=== PATIENT | female | born 1955 | race Caucasian/White ===

== ENCOUNTER 2020-10-31 21:30 | Inpatient (IN) | payer BC, MEDICARE ==
[~2020-10-31] VITALS: Ht 175.3 cm; Wt 105.0 kg
[2020-10-31] MEDS ORDERED: HM I1TAB PO (21:41)
[2020-11-01] VITALS (9 sets, daily range): BP systolic 101–139; BP diastolic 47–86
[2020-11-01 00:50] LABS: BASO % 0.1 % (0.0-1.0); EOS % 0.1 % (0.0-3.0); HEMATOCRIT 46.9 % (36.0-47.0); LYMPH # 1.1 10^3/uL (1.5-5.0); LYMPH % 10.5 % (24.0-44.0); MEAN CORPUSCULAR HEMOGLOBIN 29.9 pg (27.0-33.0); MEAN CORPUSCULAR VOLUME 93.4 fl (80.0-96.0); MONO # 0.5 10^3/uL (0.0-0.8); MONO % 4.9 % (2.0-8.0); NEUTROPHILS # 8.4 10^3/uL (1.5-8.5); PLATELET COUNT, AUTOMATED 333 10^3/uL (150-450); RED BLOOD COUNT 5.02 10^6/uL (4.00-5.40)
[2020-11-01 01:21] LABS: ALBUMIN 3.4 GM/DL (3.2-5.2); ALT/SGPT 60 U/L (12-78); BILIRUBIN,DIRECT 0.3 MG/DL (0.0-0.2); BILIRUBIN,TOTAL 0.8 MG/DL (0.2-1.0); CK-MB VALUE MASS 1.3 NG/ML (<3.6); CPK CREATINE PHOSPHOKINASE 139 U/L (26-192); LIPASE 143 U/L (73-393); MB/CK RELATIVE INDEX 0.94 (< OR =4); TOTAL PROTEIN 7.4 GM/DL (6.4-8.2); TROPONIN I < 0.02 NG/ML (< 0.10)
[2020-11-01] MEDS ORDERED: ONDANSETRON 4MG/2ML VIAL IV ONE (01:50)
[2020-11-01] MEDS ORDERED: ISOVUE-370 76% 100ML VIAL As Ordered ONE (01:53)
[2020-11-01] MEDS: MORPHINE 4 MG/ML 1ML VIAL/SYRINGE (J2270) IV PRN ×2 (02:13→02:46)
[2020-11-01] MEDS ORDERED: HYDROMORPHONE HCL 0.5 MG/ 0.5 ML SYRINGE (J1170 PER 1) IV PRN (03:25)
--- NOTE | 2020-11-01 03:47 | REPVR ---
PROCEDURE INFORMATION: Exam: CT Abdomen And Pelvis With Contrast Exam date and time: 11/01/2020 1:49 AM Age: 65 years old Clinical indication: Abdominal pain; Localized; Right; Additional info: Right upper and lower quadrant abd pain TECHNIQUE: Imaging protocol: Computed tomography of the abdomen and pelvis with contrast. Radiation optimization: All CT scans at this facility use at least one of these dose optimization techniques: automated exposure control; mA and/or kV adjustment per patient size (includes targeted exams where dose is matched to clinical indication); or iterative reconstruction. Contrast material: ISO; Contrast volume: 100 ml; Contrast route: INTRAVENOUS (IV); COMPARISON: No relevant prior studies available. FINDINGS: Mediastinal space: Moderate hiatal hernia. Liver: Normal. No mass. Gallbladder and bile ducts: Cholecystectomy clips in the right upper quadrant. Pancreas: Normal. No ductal dilation. Spleen: Normal. No splenomegaly. Adrenal glands: Normal. No mass. Kidneys and ureters: Normal. No hydronephrosis. Stomach and bowel: Moderate diverticulosis coli. Appendix: Irregular appendix with appendicular lith measures 1.8 cm. Adjacent stranding. Tiny punctate gas focus adjacent. Evidence for acute appendicitis with suspected micro perforation. Intraperitoneal space: Unremarkable. No free air. No significant fluid collection. Vasculature: Mild to moderate aortic and iliac artery atherosclerotic calcification. Lymph nodes: Unremarkable. No enlarged lymph nodes. Urinary bladder: Unremarkable as visualized. Reproductive: Unremarkable as visualized. Bones/joints: Moderate lumbar spondylosis. Soft tissues: Unremarkable. IMPRESSION: 1. Irregular appendix with appendicular lith measures 1.8 cm. Adjacent stranding. Tiny punctate gas focus adjacent. Evidence for acute appendicitis with suspected micro perforation. 2. Moderate diverticulosis coli. 3. Moderate hiatal hernia. Electronically signed by: Rigo Duvall On 11/01/2020 03:46:39 AM
[2020-11-01] MEDS ORDERED: PIPERACILLIN/TAZOBACTAM SOD 3.375 GM in D5W MINI-BAG PLUS 50 ML IV ONE (04:35)
[2020-11-01] MEDS ORDERED: OMEG1CAP85 PO (05:05)
[2020-11-01] MEDS ORDERED: OMEP-218 PO (05:05)
[2020-11-01] MEDS ORDERED: HOME MED LIST COMPLETE! XX SCH (05:05)
[2020-11-01] MEDS ORDERED: AMOX875T PO (05:05)
[2020-11-01] MEDS ORDERED: IBUP-1764 PO (05:05)
[2020-11-01] MEDS ORDERED: EZET10TA21 PO (05:05)
[2020-11-01] MEDS ORDERED: ASPI-161 PO (05:05)
[2020-11-01] MEDS ORDERED: VITMTA PO (05:05)
[2020-11-01] MEDS ORDERED: LISI20TA35 PO (05:05)
[2020-11-01 05:13] LABS: RSV AMPLIFICATION NEGATIVE (NEGATIVE)
[2020-11-01] MEDS ORDERED: ONDANSETRON 4MG/2ML VIAL IV PRN ×2 (05:30→10:05)
[2020-11-01] MEDS ORDERED: ACETAMINOPHEN TAB 650MG DOSE (2X325MG) PO PRN (05:30)
[2020-11-01] MEDS ORDERED: LR 1,000 ML IV SCH ×2 (05:30→10:05)
[2020-11-01] MEDS ORDERED: LR 1,000 ML IV ONE (06:35)
[2020-11-01] MEDS ORDERED: LIDOCAINE 1% SDV 30ML VIAL As Ordered ONE (07:11)
[2020-11-01] MEDS ORDERED: BUPIVACAINE HCL 0.25% 30ML VIAL As Ordered ONE (07:11)
--- NOTE | 2020-11-01 07:31 | HPEPDOC ---
General Surgery H&P Date of Admission Nov 01, 2020 Attending Physician: SHERIF PATE MD History and Physical CHIEF COMPLAINT: Abdominal pain HISTORY OF PRESENT ILLNESS: Patient is a 65-year-old female who presented himself to the emergency room with a 4-day history of ongoing right-sided abdominal discomfort. Initially intermittent, later yesterday becoming more constant associated with nausea, one episode of vomiting. She denies any associated fevers or chills. She is from [place] and travels here for vacation. Denies any sick contacts. In the emergency room she was evaluated was found to have evidence for appendicitis. ALLERGIES: Please see below. HOME MEDICATIONS: Please see below. PAST MEDICAL HISTORY: 1. Hypertension. 2. Hyperlipidemia 3. PAST SURGICAL HISTORY: 1. Tonsillectomy. 2. section 3. Hysterectomy 4. Cholecystectomy via right subcostal incision 5. Right knee surgery 6. Right carpal tunnel surgery PERSONAL/SOCIAL HISTORY: Patient is a previous smoker, but 1 pack a day quit 1- 1/2 years ago, denies alcohol or recreational drug use. REVIEW OF SYSTEMS: GENERAL: Symptoms are of acute nature, denies any chronic pains, denies fevers or chills, denies unexplained weight loss. HEENT: Wears glasses, denies hearing problems. NECK: [Denies any neck pain]. CARDIOVASCULAR: [Denies chest pain and palpitations]. SKIN: [Denies rash]. NEUROLOGIC: [Denies headache, stroke and transient ischemic attack]. PSYCHIATRIC: [Denies anxiety and depression]. ENDOCRINE: Denies diabetes or thyroid problems. HEMATOLOGY/ONCOLOGY: [Denies any bleeding or clotting disorder]. PULMONARY: [Denies chronic cough, dyspnea and wheezing]. GASTROINTESTINAL: See HPI. GENITOURINARY: [Denies dysuria, frequency, hematuria and nocturia]. ENDOCRINE: [Denies polydipsia, polyphagia, polyuria, heat or cold intolerance]. INFECTIOUS: Patient was taking Augmentin. NUTRITION: reports fair appetite. PHYSICAL EXAMINATION: VITAL SIGNS: Please see below. GENERAL APPEARANCE: Patient seen laying on the stretcher, visibly uncomfortable. HEENT: [Normocephalic, atraumatic. [place] palpebral conjunctivae. Anicteric sclerae. Lips dry]. CHEST: [No chest wall abnormalities. Normal respiratory motion/effort]. NECK: [Supple. No thyromegaly. No lymphadenopathies]. LUNGS: [Lung sounds are clear to auscultation bilaterally. No wheezing appreciated]. HEART: [No chest wall abnormalities. Heart rate and rhythm are regular with no murmurs]. ABDOMEN: Obese abdomen, minimally distended. She has a right subcostal incision from her cholecystectomy, Pfannenstiel incision from her gynecologic surgery. No noticeable incisional hernias. She is tender over the right lower quadrant area with moderate guarding. SKIN: Warm dry. EXTREMITIES: No significant extremity edema. NEUROLOGICAL: [Awake, alert, oriented]. ANCILLARIES:. LABORATORY DATA: Please see below. WBCs 10 MICROBIOLOGY: Please see below. IMAGING: CT scan of the abdomen and pelvis Appendix: Irregular appendix with appendicular lith measures 1.8 cm. Adjacent stranding. Tiny punctate gas focus adjacent. Evidence for acute appendicitis with suspected micro perforation IMPRESSION AND PLAN: Acute appendicitis with possible early perforation with no associated abscess, localized peritonitis Patient has a 4-day history of initially relapsing abdominal pain around becoming constant with no severe signs of systemic inflammatory response of the CAT scan has been suggestive of possible microperforation but no noticeable ab scess or severe phlegmon. We will go ahead and bring her to the operating room for laparoscopic appendectomy Patient has been started on Zosyn 3.375 g IV in the emergency room. I have made arrangements to bring her to the operating room for laparoscopic appendectomy. I discussed with the patient the details of the proposed procedure, the benefits of performing the procedure, the most common risks on doing the procedure. This may include risks of general anesthesia, risk of laparoscopy including bowel and vascular injuries, risk of the procedure itself which may include injury to nearby structures, subsequent abscess, space organ, surgical site infection. She has prior open surgeries including right subcostal incision for cholecystectomy so we might encounter extensive adhesions inside which may require prolonged lysis of adhesion and its own risks including bowel injuries I have given her a chance to ask questions, voice out concerns. Patient has agreed to proceed Vital Signs Vital Signs Date Time Temp Pulse Resp B/P (MAP) Pulse Ox O2 Delivery O2 Flow Rate FiO2 11/01/20 06:00 98/53 (68) 11/01/20 05:48 98.3 111 18 Room Air 10/31/20 21:31 99 Laboratory Data Labs 24H Laboratory Tests 2 11/01/20 00:40: Immature Granulocyte % (Auto) 0.4, Neutrophils (%) (Auto) 84.0H, Lymphocytes (%) (Auto) 10.5L, Monocytes (%) (Auto) 4.9, Eosinophils (%) (Auto) 0.1, Basophils (%) (Auto) 0.1, Neutrophils # (Auto) 8.4, Lymphocytes # (Auto) 1.1L, Monocytes # (Auto) 0.5, Eosinophils # (Auto) 0.0, Basophils # (Auto) 0.0, Nucleated Red Blood Cells % (auto) 0.0, Total Bilirubin 0.8, Direct Bilirubin 0.3H, Aspartate Amino Transf (AST/SGOT) 38H, Alanine Aminotransferase (ALT/SGPT) 60, Alkaline Phosphatase 116, Total Creatine Kinase 139, Creatine Kinase MB 1.3, Creatine Kinase MB Relative Index 0.94, Troponin I < 0.02, Total Protein 7.4, Albumin 3.4, Albumin/Globulin Ratio 0.9L, Lipase 143 11/01/20 00:46: POC Glucose (Misc Panel) 135H, POC Sodium (Misc Panel) 134L, POC Potassium (Misc Panel) 4.0, POC Chloride (Misc Panel) 96L, POC Total CO2 (Misc Panel) 25.0, POC Blood Urea Nitrogen (Misc Panel 21, POC Ionized Calcium (Misc Panel) 4.3L, POC C reatinine (Misc Panel) 1.0, POC Hematocrit (Misc Panel) 48.0 11/01/20 04:27: Coronavirus (COVID-19)(PCR) NEGATIVE, Influenza Type A (RT-PCR) NEGATIVE, Influenza Type B (RT-PCR) NEGATIVE, Respiratory Syncytial Virus (PCR) NEGATIVE CBC/BMP Laboratory Tests 11/01/20 00:40 Home Medications Scheduled Amoxicillin (Amoxicillin) 875 Mg Tablet, 875 MG PO BID, (Reported) Aspirin (Aspirin EC) 81 Mg Tablet.dr, 81 MG PO DAILY, (Reported) Ezetimibe (Ezetimibe) 10 Mg Tablet, 10 MG PO QHS, (Reported) Lisinopril/Hydrochlorothiazide (Lisinopril-Hctz 20-12.5 mg Tab) 1 Each Tablet, 1 TAB PO BID, (Reported) Multivitamins (Thera M Plus Tablet) 1 Each Tablet, 1 TAB PO DAILY, (Reported) [place]-3 Acid Ethyl Esters ([place]-3 Acid Ethyl Esters) 1 Gm Capsule, 2 CAP PO BID, (Reported) Omeprazole (Omeprazole) 20 Mg Capsule.dr, 20 MG PO DAILY, (Reported) Scheduled PRN Ibuprofen (Ibuprofen) 200 Mg Tablet, 600 MG PO Q6H PRN for PAIN LEVEL 1-5, (Reported) Allergies Coded Allergies: meperidine (Verified Allergy, Mild, rash, 10/31/20) A-FIB/CHADSVASC A-FIB History Current/History of A-Fib/PAF?: No Current PO Anticoag Therapy: No SHERIF PATE MD Nov 01, 2020 07:31
--- NOTE | 2020-11-01 07:56 | ECGEPIP ---
[facility] - ED Test Date: 2020-11-01 Pat Name: NANCY ADEN Department: Room: - Gender: Female Load Planner: ADRIAN : 1955 Requested By: MERVIN Sims Order Number: [id number] Reading MD: Wali Barajas Measurements Intervals [place] Rate: 109 P: 54 ID: [id number] QRS: 62 QRSD: 80 T: 43 QT: 330 QTc: 444 Interpretive Statements Sinus tachycardia NO PRIORS FOR COMPARISON Electronically Signed on 11-01-2020 7:56:23 EDT by Wali Barajas
[2020-11-01] MEDS ORDERED: ONDANSETRON 4MG/2ML VIAL As Ordered ONE (08:36)
[2020-11-01] MEDS ORDERED: propofoL 200 MG/20 ML VIAL As Ordered ONE (08:36)
[2020-11-01] MEDS ORDERED: ROCURONIUM BROMIDE 50 MG/5 ML VIAL As Ordered ONE (08:36)
[2020-11-01] MEDS ORDERED: dexameTHASONE 4 MG/ML 1ML VIAL (J1100 PER 1MG) As Ordered ONE (08:36)
[2020-11-01] MEDS ORDERED: VASOPRESSIN INJ 20 UNITS/ML VIAL As Ordered ONE (08:36)
[2020-11-01] MEDS ORDERED: ACETAMINOPHEN 1000MG 100ML IV BTL (OFIRMEV) (J0131 PER 10MG) As Ordered ONE (08:36)
[2020-11-01] MEDS ORDERED: LIDOCAINE 2% 100MG/5ML SDV (FOR ANES.) As Ordered ONE (08:36)
[2020-11-01] MEDS ORDERED: fentaNYL 250 MCG/5 ML INJECTION (J3010) As Ordered ONE (08:36)
[2020-11-01] MEDS ORDERED: KETOROLAC 60MG 2ML VIAL As Ordered ONE (08:36)
[2020-11-01] MEDS ORDERED: PHENYLephrine 500MCG 5ML (100MCG/ML) SYRINGE As Ordered ONE (08:36)
[2020-11-01] MEDS ORDERED: MIDAZOLAM INJ 2MG/2ML VIAL (J2250 PER 1MG) As Ordered ONE (08:36)
[2020-11-01] MEDS ORDERED: SUGAMMADEX SODIUM 500 MG/5 ML VIAL (BRIDION) As Ordered ONE (08:37)
--- NOTE | 2020-11-01 09:43 | ROOPDOC ---
[facility] Report Of Operation Report of Operation DATE OF PROCEDURE: 11/01/20 PREPROCEDURE DIAGNOSES: acute appendicitis . POSTPROCEDURE DIAGNOSES: perforated acute appendicitis. PROCEDURE PERFORMED: Laparoscopic appendectomy. SURGEON: Ryan Morel MD MANUFACTURING ENGINEERING TECHNICIAN: ANESTHESIA: General endotracheal anesthesia. ESTIMATED BLOOD LOSS: Approximately 20 mL. COMPLICATIONS: None. REMARKS: 65 female with about a 4-day history of ongoing right-sided abdominal pain presented to the ER yesterday evening was recognized to have acute appendicitis. She has localized guarding, no systemic signs of inflammatory or response. No elevated white cell count. On CT has found to have dilated, thickened appendix with periappendiceal inflammation, microperforation, no abscess. FINDINGS: Murky fluid in between bowel loops and in the right gutter no con solidated abscess. Thickened appendix slightly retrocecal in the course between the terminal ileum and posterior lateral sidewall of the cecum. Perforation at the base. Mesoappendix is shortened and thickened. The wall of the appendix at the base is hardened brawny in appearance. SPECIMENS REMOVED: Appendix. DESCRIPTION OF PROCEDURE: Patient received a dose of Zosyn 3.375 g IV as well as IV fluid hydration in the emergency room. She was brought to the operating room, placed supine on the table, compression boots placed in both lower extremities for DVT prophylaxis. General endotracheal anesthesia was established. Her abdomen widely prepped and draped in the usual sterile fashion. Her left arm was tucked. We paused for a surgical timeout using both pre-incision safety checklist to verify correct patient, procedure site and additional clinical information prior to beginning the procedure She has a prior right subcostal incision as well as a Pfannenstiel incision. I entered the abdomen through an area just above the umbilicus. A Veress needle was inserted and controlled fashion. Proper placement confirmed saline drop t echnique. CO2 insufflation started to a pressure of 15 mmHg. Using the same incision a 5 mm optical port was placed under direct vision of the laparoscope. The area underneath the insertion site was inspected for injury none was found. She was then placed on a Trendelenburg position tilted towards the left side. On initial examination, there are murky fluid in between the visible small bowel loops. Some small bowel is adhered to the right side of the abdominal wall secondary to the inflammatory adhesions. Exudates as well as secondary reaction of the distal small bowel is noted. The appendix is not easily visible yet. She has moderate amounts of omental adhesions underneath her right subcostal incision but the bowel seems relatively free. I placed a 5 mm left upper quadrant port and another 5 mm port over the left lower quadrant. There were some bleeding, small hematoma around the left lower quadrant port the form probably from a branch of the inferior epigastric but bleeding has stopped by itself. We proceeded with the procedure. Bowels were retracted away from the right lower quadrant. I was able to see the tip of the appendix that looks thickened and hardened as well as the mesoappendix in between the terminal ileum and posterior lateral wall of the cecum. The lateral attachments of the cecum was freed up to slightly rotate this to view further the course of the appendix. The lateral abdominal wall attachments of the terminal ileum was likewise freed up to further clarify the view. The ligament of Treves was divided. The lateral attachments of the appendix which was fibrotic was freed up with the harmonic scalpel to further deliver the appendix into view. The mesoappendix is thickened and this was slowly divided with the harmonic scalpel at the base. The wall of the appendix is thickened throughout but hardened, brawny in appearance with surrounding murky fluid at the base. There was some mild secondary reaction of the wall of the cecum. I further dissected the fibrotic attachments of the appendix to the cecum to further pull this away and clarify the base of the appendix. Once the base of the appendix was cleared, I was a bit concerned whether this will hold a suture in place given the appearance of the base. I upsized my umbilical port to 12 mm to accommodate the stapler. I divided the appendix flush to the base of the cecum with an [place] 60 mm stapler with a green load. The staple line was examined and noted to be intact. No evidence of bleeding. The appendix was placed in an Endo Catch bag and retrieved through the 12 mm port site. I then irrigated out the right gutter also at the pelvis suction of most of the fluid. The perihepatic area was difficult to visualize secondary to the omental adhesions as well as the body habitus. I left a 19 Cl drain at the right gutter threaded this through the left lower quadrant port site. The umbilical port site was closed using a Mani-Benson device with 0 Vicryl with 2 interrupted stitches. Her abdomen is deflated, all ports were removed. The drain was secured to the skin with 2-0 silk. Rest of the skin incision closed with 4-0 Monocryl in subcuticular fashion. Dermabond was used for postop dressing. Drain dressing placed around the RUDDY drain site. She was promptly awakened, extubated and brought to recovery room in stable condition. RYAN MOREL MD Nov 01, 2020 09:43
[2020-11-01] MEDS ORDERED: METOCLOPRAMIDE INJ 10MG/2ML VIAL (J2765 PER 1) IV PRN (10:05)
[2020-11-01] MEDS ORDERED: fentaNYL 100 MCG/2 ML INJECTION (J3010) IV PRN (10:05)
[2020-11-01] MEDS ORDERED: oxyCODONE 5MG TAB PO PRN (10:05)
[2020-11-01] MEDS ORDERED: ALBUTEROL SULFATE 2.5 MG/0.5 ML INH NEB SOLN INH ONE (10:10)
[2020-11-01] MEDS: PIPERACILLIN/TAZOBACTAM SOD 3.375 GM in D5W MINI-BAG PLUS 50 ML IV SCH ×3 (13:47→23:54)
[2020-11-01] MEDS: KETOROLAC 30 MG/ML 1ML VIAL IV PRN ×2 (13:52→20:03)
[2020-11-01] MEDS: EZETIMIBE 10 MG TAB (ZETIA) PO SCH (20:03)
[2020-11-01] MEDS: MORPHINE 2 MG/ML 1ML VIAL (J2270) IV PRN (23:54)
[2020-11-02 02:00] VITALS: BP 129/81
[2020-11-02] MEDS: KETOROLAC 30 MG/ML 1ML VIAL IV PRN ×3 (03:31→20:14)
[2020-11-02] MEDS: PIPERACILLIN/TAZOBACTAM SOD 3.375 GM in D5W MINI-BAG PLUS 50 ML IV SCH ×3 (05:44→18:10)
[2020-11-02 05:50] LABS: BASO % 0.1 % (0.0-1.0); EOS % 0.2 % (0.0-3.0); HEMATOCRIT 36.2 % (36.0-47.0); LYMPH # 1.3 10^3/uL (1.5-5.0); LYMPH % 9.3 % (24.0-44.0); MEAN CORPUSCULAR HEMOGLOBIN 30.4 pg (27.0-33.0); MEAN CORPUSCULAR HGB CONC 32.3 g/dl (32.0-36.5); MONO % 7.1 % (2.0-8.0); NEUTROPHILS # 11.1 10^3/uL (1.5-8.5); NEUTROPHILS % 82.8 % (36.0-66.0); PLATELET COUNT, AUTOMATED 274 10^3/uL (150-450); RED BLOOD COUNT 3.85 10^6/uL (4.00-5.40); WHITE BLOOD COUNT 13.5 10^3/uL (4.0-10.0)
[2020-11-02] MEDS: MORPHINE 2 MG/ML 1ML VIAL (J2270) IV PRN ×5 (05:50→21:21)
[2020-11-02 05:54] LABS: HEMOGLOBIN 11.7 g/dl (12.0-15.5)
[2020-11-02 06:00] VITALS: BP 144/68
[2020-11-02 06:20] LABS: BLOOD UREA NITROGEN 27 MG/DL (7-18); CALCIUM LEVEL 7.9 MG/DL (8.8-10.2); CARBON DIOXIDE LEVEL 27 MEQ/L (21-32); CHLORIDE LEVEL 99 MEQ/L (98-107); CREATININE FOR GFR 0.87 MG/DL (0.55-1.30); GLOMERULAR FILTRATION RATE > 60.0 (>45); GLUCOSE, FASTING 147 MG/DL (70-100); SODIUM LEVEL 132 MEQ/L (136-145)
[2020-11-02 10:00] VITALS: BP 143/79
[2020-11-02 14:00] VITALS: BP 166/86
--- NOTE | 2020-11-02 15:43 | REP ---
INDICATION: ileus. COMPARISON: None. TECHNIQUE: KUB FINDINGS: A drainage tube is in place extending from the right paracolic gutter down into the pelvis and exiting near the midline. The bowel gas pattern is normal. There is no gas or megaly. IMPRESSION: Drainage tube in place. Normal bowel gas pattern. <Electronically signed by Shun Abreu > 11/02/20 [id number]
--- NOTE | 2020-11-02 19:02 | IPN ---
PROGRESS NOTE DATE: 11/02/2020 HISTORY: Patient is a 65-year-old woman now one day postoperative from a laparoscopic appendectomy for perforated appendicitis with localized peritonitis. She has a drain in place, which crosses from the left lower quadrant over to the right lower quadrant internally. She has tolerated clear liquids, but is complaining of significant abdominal discomfort and a sensation of bloating. She denies any nausea or vomiting, but has had no flatus. PHYSICAL EXAMINATION: VITAL SIGNS: Show that she has had a maximum temperature of 100.2 this afternoon. Her pulse is in the 80s up to 108. Blood pressure is good and her room air pulse oximetry has ranged in the low to high 90s generally. INTAKE AND OUTPUT: Show that yesterday she got 4600 mL in, 3100 of which was oral and only 1160 out. 210 was from her Jerry-Santamaria (RUDDY) drain yesterday and she had 50 mL out her drain so far today. GENERAL: Patient is an alert woman lying quietly on the hospital bed. HEART EXAM: Shows a regular rhythm. ABDOMEN: Somewhat obese and protuberant. She has a few bowel sounds in the upper abdomen, but the lower abdomen is fairly quiet to auscultation. There is some mild tympany to percussion in the epigastrium. The abdomen is full. She has tenderness, particularly across the lower abdomen. This is mild to moderate in severity to direct palpation. LABORATORY STUDIES: Today show a white count of 14,000 with a differential count showing 83% neutrophils and 9% lymphocytes with 7% monocytes. Hemoglobin is 12 with a hematocrit of 36. Chemistry profile shows a sodium of 132, potassium 4.0, chloride 99, CO2 of 27, BUN of 27, a creatinine of 0.9 and a glucose of 147. A C-reactive protein this morning is 21.7, which is significantly elevated. This afternoon, she underwent a KUB, which revealed a drainage tube going across the lower abdomen. She has a large amount of air throughout the colon with what appears to be a large amount of stool in the right colon as well. IMPRESSION: Patient is doing okay now one day postoperative from a laparoscopic cholecystectomy for appendicitis. She has a drain in the lower abdomen. She is complaining of a large amount of pain and a feeling of fullness. She is not yet passing any flatus. I suspect that she has a degree of ileus related to her peritonitis from her perforated appendix. She may also be feeling some discomfort from the drain itself. PLAN: The KUB was done to check for more significant signs of an ileus. I have recommended that she cut back on her diet and I will cut her back from regular to clear liquids again. I encouraged her to be up ambulating. I have increased her dose of morphine to 3 mg every 2 hours as needed for severe pain. We will see how she does today. With her white count elevated and her C-reactive protein (CRP) quite high, I have recommended that she remain in the hospital on intravenous antibiotics for now and she is agreeable with that for now. ANNETTE
[2020-11-02] MEDS: EZETIMIBE 10 MG TAB (ZETIA) PO SCH (20:14)
[2020-11-02 22:00] VITALS: BP 139/86
[2020-11-03] MEDS: PIPERACILLIN/TAZOBACTAM SOD 3.375 GM in D5W MINI-BAG PLUS 50 ML IV SCH ×5 (00:35→23:53)
[2020-11-03] MEDS: MORPHINE 2 MG/ML 1ML VIAL (J2270) IV PRN ×4 (00:36→12:01)
[2020-11-03] MEDS: KETOROLAC 30 MG/ML 1ML VIAL IV PRN ×2 (03:53→13:04)
[2020-11-03 05:57] LABS: BASO % 0.2 % (0.0-1.0); EOS # 0.2 10^3/uL (0.0-0.5); EOS % 1.8 % (0.0-3.0); HEMATOCRIT 35.8 % (36.0-47.0); HEMOGLOBIN 11.3 g/dl (12.0-15.5); LYMPH # 1.4 10^3/uL (1.5-5.0); LYMPH % 15.5 % (24.0-44.0); MEAN CORPUSCULAR HEMOGLOBIN 29.7 pg (27.0-33.0); MEAN CORPUSCULAR HGB CONC 31.6 g/dl (32.0-36.5); MEAN CORPUSCULAR VOLUME 94.2 fl (80.0-96.0); MONO % 10.3 % (2.0-8.0); NEUTROPHILS # 6.6 10^3/uL (1.5-8.5); NEUTROPHILS % 71.7 % (36.0-66.0); PLATELET COUNT, AUTOMATED 283 10^3/uL (150-450); WHITE BLOOD COUNT 9.3 10^3/uL (4.0-10.0)
[2020-11-03 06:00] VITALS: BP 141/78
[2020-11-03 06:20] LABS: BLOOD UREA NITROGEN 17 MG/DL (7-18); CALCIUM LEVEL 8.3 MG/DL (8.8-10.2); CARBON DIOXIDE LEVEL 30 MEQ/L (21-32); CHLORIDE LEVEL 99 MEQ/L (98-107); CREATININE FOR GFR 0.73 MG/DL (0.55-1.30); GLOMERULAR FILTRATION RATE > 60.0 (>45); GLUCOSE, FASTING 117 MG/DL (70-100); SODIUM LEVEL 134 MEQ/L (136-145)
[2020-11-03] MEDS: SENOKOT S TAB PO SCH ×2 (13:28→20:19)
--- NOTE | 2020-11-03 13:58 | IPN ---
PROGRESS NOTE DATE: 11/03/2020 HISTORY: Patient is postop day #2 from a laparoscopic appendectomy for acute perforated appendicitis. A drain was placed from the left lower quadrant going across into the right lower quadrant. She continues to complain of some significant pain although she feels less full or bloated than she did yesterday. She has no nausea or vomiting and is asking for some solid food. Vital signs shows that the patient had a T-max of 100.2 yesterday afternoon. Her pulse was 96 this morning with a blood pressure of 141/78. Room air oxygen saturation is normal. Intake and output shows that yesterday she had 1800 in with five voids and 90 ccs from her drain. She does report she is passing some flatus now. PHYSICAL EXAM: Patient is lying quietly on the hospital bed. She appears slightly more comfortable than yesterday. Heart exam shows a regular rhythm. The lungs show clear breath sounds. The abdomen is still somewhat obese but does not appear quite as distended. She has active bowel sounds. The abdomen is soft. She has some tenderness in the lower abdomen. Her drain has some clear serous fluid in the bulb currently. Laboratory studies today shows a white count of 9, hemoglobin of 11, hematocrit 36 and a platelet count of 283,000. Differential shows 72% neutrophils, 16% lymphocytes and 10% monocytes. Chemistry profile shows a sodium of 134, potassium 4.0, chloride 99, CO2 of 30, BUN of 17, creatinine 0.7 and a glucose of 117. C-reactive protein is decreased slightly to 18.2 today. Culture from her peritoneal fluid is now growing E. coli which is sensitive to her Piperacillin-Tazobactam as well as a number of other IV medications. It is also sensitive to oral Trimethoprim sulfamethoxazole and levofloxacin. IMPRESSION: Patient is perhaps somewhat more comfortable today. I suspect a lot of her discomfort in her lower abdomen is from her drain. This is draining only some clear serous fluid and had 90 ccs yesterday. There is E. coli growing from her peritoneal culture but her white count is down to normal with a nearly normal differential count. PLAN: I will remove her drain today. She was counseled regarding local care of the drain site. I will advance her to a regular diet. I have recommended that she remain in the hospital until tomorrow morning and if her labs look good, she is afebrile and she is tolerating a diet tomorrow then I anticipate she could be discharged home. ANNETTE
[2020-11-03 14:00] VITALS: BP 138/66
[2020-11-03] MEDS: NORCO, ANEXSIA 5/325MG TABLET (HYDROcodone/ACETAMINOPHEN) PO PRN ×3 (14:16→22:26)
[2020-11-03] MEDS: EZETIMIBE 10 MG TAB (ZETIA) PO SCH (20:19)
[2020-11-03 22:00] VITALS: BP 132/68
[2020-11-04] MEDS: NORCO, ANEXSIA 5/325MG TABLET (HYDROcodone/ACETAMINOPHEN) PO PRN ×4 (02:27→17:25)
[2020-11-04] MEDS: PIPERACILLIN/TAZOBACTAM SOD 3.375 GM in D5W MINI-BAG PLUS 50 ML IV SCH ×2 (05:23→12:29)
[2020-11-04 05:54] LABS: BASO % 0.4 % (0.0-1.0); EOS # 0.2 10^3/uL (0.0-0.5); EOS % 2.8 % (0.0-3.0); HEMATOCRIT 36.6 % (36.0-47.0); HEMOGLOBIN 11.7 g/dl (12.0-15.5); LYMPH # 1.5 10^3/uL (1.5-5.0); LYMPH % 20.7 % (24.0-44.0); MEAN CORPUSCULAR HEMOGLOBIN 30.4 pg (27.0-33.0); MEAN CORPUSCULAR VOLUME 95.1 fl (80.0-96.0); MONO % 12.9 % (2.0-8.0); NEUTROPHILS # 4.6 10^3/uL (1.5-8.5); NEUTROPHILS % 62.3 % (36.0-66.0); PLATELET COUNT, AUTOMATED 297 10^3/uL (150-450); RED BLOOD COUNT 3.85 10^6/uL (4.00-5.40); WHITE BLOOD COUNT 7.5 10^3/uL (4.0-10.0)
[2020-11-04 06:00] VITALS: BP 169/81
[2020-11-04 06:16] LABS: BLOOD UREA NITROGEN 13 MG/DL (7-18); CALCIUM LEVEL 8.4 MG/DL (8.8-10.2); CARBON DIOXIDE LEVEL 31 MEQ/L (21-32); CHLORIDE LEVEL 102 MEQ/L (98-107); CREATININE FOR GFR 0.69 MG/DL (0.55-1.30); GLOMERULAR FILTRATION RATE > 60.0 (>45); GLUCOSE, FASTING 103 MG/DL (70-100); POTASSIUM SERUM 4.1 MEQ/L (3.5-5.1); SODIUM LEVEL 135 MEQ/L (136-145)
[2020-11-04] MEDS: SENOKOT S TAB PO SCH (09:25)
[2020-11-04] MEDS ORDERED: MOM 30ML SUSPENSION UDC PO ONE (09:35)
[2020-11-04] MEDS: MORPHINE 2 MG/ML 1ML VIAL (J2270) IV PRN (12:50)
[2020-11-04 14:00] VITALS: BP 156/73
[2020-11-04] MEDS ORDERED: AUGM875T28 PO (14:32)
[2020-11-04] MEDS ORDERED: HYDR-3715 PO (14:32)
[2020-11-04] MEDS ORDERED: SENN-52 PO (14:32)
--- NOTE | 2020-11-04 15:06 | DS.PDOC ---
Discharge Summary General Date of Admission Nov 02, 2020 at 14:17 Date of Discharge 11/04/20 Discharge Summary General surgery. Dr. Morel PROCEDURES PERFORMED DURING STAY: Laparoscopic appendectomy 11/01/[address] Morel. ADMITTING DIAGNOSES: Acute appendicitis Hypertension Hyperlipidemia DISCHARGE DIAGNOSES: Acute appendicitis status post laparoscopic appendectomy 11/01/[address] José Luis quinteros Hypertension Hyperlipidemia HISTORY OF PRESENT ILLNESS: 65-year-old female who presented to the emergency room with a 4-day history of ongoing right-sided abdominal discomfort. Initially intermittent, later yesterday becoming more constant associated with nausea, one episode of vomiting. She is from [place] and travels here for vacation. In the emergency room she was evaluated was found to have evidence for appendicitis. HOSPITAL COURSE: The pt is S/P laparoscopic appendectomy 11/01/[address] Morel for perforated appendicitis with localized peritonitis. POD 1 was dayanna erating clear liquids. She was continued on IV antibiotics as her white count had been elevated and CRP was elevated. She also reported some abdominal discomfort and sensation of bloating. Abdominal x-ray indicated normal bowel gas pattern. Drainage tube remained in place. By postoperative day #2 she reported feeling less bloated. RUDDY drain was removed. She was advanced to regular diet. And by 11/04/2020 the patient was feeling ready for discharge. She has been afebrile since temperature of 100.2 11/02 at 1400 hrs. She has been up out of bed. She has not had a bowel movement yet however she was given a dose of milk of magnesia this morning as per Dr. Morel. Dr. Morel has reviewed and examined the patient and the patient is felt stable for discharge at this afternoon. DISCHARGE MEDICATIONS: Please see below. ALLERGIES: Please see below. PHYSICAL EXAMINATION ON DISCHARGE: VITAL SIGNS: Please see below. GENERAL: Awake and alert in bed. HEENT: MMM CARDIOVASCULAR EXAMINATION: S1-S2 regular rate rhythm RESPIRATORY EXAMINATION: Clear to auscultation ABDOMINAL EXAMINATION: Surgical sites with dressings clean/dry/intact. Abdomen is soft, mild tenderness around incision site only. EXTREMITIES: No edema LABORATORY DATA: CRP this morning 15.10, continues with downward trend. WBC 7.5 IMAGING: CT abdomen/pelvis 11/01/2020 IMPRESSION: 1. Irregular appendix with appendicular lith measures 1.8 cm. Adjacent stranding. Tiny punctate gas focus adjacent. Evidence for acute appendicitis with suspected micro perforation. 2. Moderate diverticulosis coli. 3. Moderate hiatal hernia. Electronically signed by: Rigo Duvall On 11/01/2020 Abdominal x-ray 11/02/2020 IMPRESSION: Drainage tube in place. Normal bowel gas pattern. <Electronically signed by Shun Abreu > 11/02/20 DISCHARGE PLAN: Discharge home DISCHARGE INSTRUCTIONS: Discharge home this afternoon Activity as tolerated. No heavy lifting, pushing, pulling greater than 20 pounds for 2-week Regular diet Continue to keep incisions clean and dry. Okay to shower but no bath or swimming. Call back to the office with any questions or concerns, wound drainage, fevers, chills, or increasing pain Hydrocodone 5/325 1 tablet every 6 hours as needed #24. I stop reference #[id number] Senokot 2 tablets p.o. twice daily as needed Augmentin 875 mg 1 tablet p.o. twice daily x7 days Follow-up with Dr. Morel in 2 weeks DISCHARGE CONDITION: Stable. TIME SPENT ON DISCHARGE: Greater than 30 minutes. Vital Signs/I&Os Vital Signs Date Time Temp Pulse Resp B/P (MAP) Pulse Ox O2 Delivery O2 Flow Rate FiO2 11/04/20 13:23 18 11/04/20 06:00 97.1 83 169/81 (110) 93 Room Air 11/01/20 16:00 2.0 I&O- Last 24 Hours up to 6 AM 11/04/20 06:00 Intake Total 1920 ml Balance 1920 ml Laboratory Data Labs 24H Laboratory Tests 2 11/04/20 05:22: Immature Granulocyte % (Auto) 0.9, Neutrophils (%) (Auto) 62.3, Lymphocytes (%) (Auto) 20.7L, Monocytes (%) (Auto) 12.9H, Eosinophils (%) (Auto) 2.8, Basophils (%) (Auto) 0.4, Neutrophils # (Auto) 4.6, Lymphocytes # (Auto) 1.5, Monocytes # (Auto) 1.0H, Eosinophils # (Auto) 0.2, Basophils # (Auto) 0.0, Nucleated Red Blood Cells % (auto) 0.0, Anion Gap 2L, Glomerular Filtration Rate > 60.0, Calcium Level 8.4L, C-Reactive Protein, Quantitative 15.10H CBC/BMP Laboratory Tests 11/04/20 05:22 Microbiology Microbiology 11/01/20 Gram Stain - Final, Resulted 11/01/20 Body Fluid Culture - Final, Resulted Escherichia Coli 11/01/20 Anaerobic Culture, Resulted Pending Discharge Medications Scheduled Amoxicillin/Potassium Clav (Augmentin 875-125 Tablet) 1 Each Tablet, 1 TAB PO BID Aspirin (Aspirin EC) 81 Mg Tablet.dr, 81 MG PO DAILY, (Reported) Ezetimibe (Ezetimibe) 10 Mg Tablet, 10 MG PO QHS, (Reported) Lisinopril/Hydrochlorothiazide (Lisinopril-Hctz 20-12.5 mg Tab) 1 Each Tablet, 1 TAB PO BID, (Reported) Multivitamins (Thera M Plus Tablet) 1 Each Tablet, 1 TAB PO DAILY, (Reported) Purvis-3 Acid Ethyl Esters (Purvis-3 Acid Ethyl Esters) 1 Gm Capsule, 2 CAP PO BID, (Reported) Omeprazole (Omeprazole) 20 Mg Capsule.dr, 20 MG PO DAILY, (Reported) Scheduled PRN Hydrocodone/Acetaminophen (Hydrocodone-Acetamin 5-325 mg) 1 Each Tablet, 1 TAB PO Q6HP PRN for MODERATE PAIN (PS 5-7) Ibuprofen (Ibuprofen) 200 Mg Tablet, 600 MG PO Q6H PRN for PAIN LEVEL 1-5, (Reported) Sennosides/Docusate Sodium (Senna Plus Tablet) 1 Each Tablet, 2 TAB PO BIDP PRN for CONSTIPATION Allergies Coded Allergies: meperidine (Verified Allergy, Mild, rash, 10/31/20) Quynh Brown Nov 04, 2020 14:57
== END 2020-11-04 17:30 | disposition home or self-care (01) | DRG 225 ==
LOC: M ED 11-01 00:54 → M SDC 11-01 06:12 → M MSPAV 11-01 11:02 → M SDC 11-02 14:16 → M MSPAV 11-02 14:17
PROVIDERS: ADMIT Surgery; ATTEND Surgery
PROC: 0DTJ4ZZ Resection of Appendix, Percutaneous Endoscopic Approach (ICD-10-PCS; principal; 2020-11-01 07:30)
DX: K35.32 Acute appendicitis with perforation, localized peritonitis, and gangrene, without abscess (principal); I10 Essential (primary) hypertension; Z79.82 Long term (current) use of aspirin; Z79.899 Other long term (current) drug therapy; Z88.8 Allergy status to other drugs, medicaments and biological substances; E78.5 Hyperlipidemia, unspecified; Z87.891 Personal history of nicotine dependence; K44.9 Diaphragmatic hernia without obstruction or gangrene; K57.30 Diverticulosis of large intestine without perforation or abscess without bleeding